=== PATIENT | male | born 1990 | race Caucasian/White ===

== ENCOUNTER → 2017-05-25 | Outpatient (CLI) | payer OTHER ==
[~2017-05-25] MED LIST: AMOX500 PO; BACL20 PO; BISA5EC; Bactrim 400-801 EACH PO; CHOL10002 PO; DIPH25; Dicyclomine HCl20 MG PO; GABA400 PO; HYDACE5 PO; LAVAP17G PO; MULVITMIND PO; Macrobid 100 M100 MG PO; NITR100 PO; Nitrofurantoin50 MG PO; OMEP20ER PO; POLY500 PO; PYRI100 PO; RXHYDACE PO; Roxicodone5 MG PO; Ultram50 MG PO; Vibramycin100 MG PO
== END | disposition home or self-care (01) ==
LOC: LAB 16:13
DX: N39.0 Urinary tract infection, site not specified (principal)
CPT/HCPCS: 87077; 87086; 87186

== ENCOUNTER → 2018-06-22 | Outpatient (CLI) | payer OTHER | END | disposition home or self-care (01) | LOC: LAB EV 15:39 → LAB SHORT 15:39 | DX: S91.302A Unspecified open wound, left foot, initial encounter (principal); Z53.9 Procedure and treatment not carried out, unspecified reason | CPT/HCPCS: 87070; 87075; 87205 ==

== ENCOUNTER → 2018-10-11 | Outpatient (CLI) | payer OTHER ==
[2018-10-11 15:42] LABS: BASOPHILS ABSOLUTE AUTO 0.06 K/mm3 (0.00-0.23); BASOPHILS PERCENT AUTO 1 % (0-2); EOSINOPHILS ABSOLUTE AUTO 0.26 K/mm3 (0.00-0.68); EOSINOPHILS PERCENT AUTO 3 % (0-6); Hematocrit 43.6 % (37.0-53.0); IMMATURE GRAN ABSOLUTE AUTO 0.03 K/mm3 (0.00-0.10); IMMATURE GRAN PERCENT AUTO 0 % (0-1); LYMPHOCYTES PERCENT AUTO 24 % (21-46); MONOCYTES ABSOLUTE AUTO 0.55 K/mm3 (0.16-1.47); MONOCYTES PERCENT AUTO 6 % (4-13); Mean Corpuscular HGB 30.7 pg (26.0-34.0); Mean Corpuscular HGB Conc 34.4 g/dL (31.5-36.5); Mean Corpuscular Volume 89 fL (80-100); Mean Platelet Volume 9.6 fL (9.1-12.4); NEUTROPHILS ABSOLUTE AUTO 6.48 K/mm3 (1.96-9.15); NEUTROPHILS PERCENT AUTO 67 % (41-73); Platelet Count 286 K/mm3 (150-400); RDW Coefficient Variation 12.4 % (11.7-14.2); RDW Standard Deviation 40.8 fL (35.1-46.3); Red Blood Cell Count 4.88 M/mm3 (4.30-5.90); White Blood Cell Count 9.68 K/mm3 (4.00-11.30)
[2018-10-11 15:55] LABS: Alanine Aminotransfer (ALT/SGP 23 U/L (12-78); Albumin/Globulin Ratio 1.1 (0.8-1.8); Alk Phos 69 U/L (40-126); Anion Gap 8 mmol/L (6-16); Aspartate Aminotrans (AST/SGOT 21 U/L (12-37); Bilirubin, Total 0.3 mg/dL (0.1-1.0); Blood Urea Nitrogen 8 mg/dL (8-24); Bun/Creatinine Ratio 10.1 (12.0-20.0); CO2, Blood 31 mmol/L (21-32); Calcium, Blood 9.1 mg/dL (8.5-10.1); Chloride, Blood 103 mmol/L (98-108); Creatinine, Blood 0.79 mg/dL (0.60-1.20); Globulin, Blood 3.5 g/dL (2.2-4.0); Glomerular Filtration Rate >60 (60-); Glucose, Blood 86 mg/dL (70-99); Potassium, Blood 3.9 mmol/L (3.5-5.5); Sodium, Blood 142 mmol/L (136-145); Total Protein, Blood 7.5 g/dL (6.4-8.2)
== END | disposition home or self-care (01) ==
LOC: LAB EV 15:38 → LAB SHORT 15:38
PROVIDERS: Physician Assistant Medical
DX: R10.84 Generalized abdominal pain (principal)
CPT/HCPCS: 80053; 83690; 85025

== ENCOUNTER 2019-06-05 00:16 | Day surgery (SDC) | payer OTHER | END 2019-06-05 22:46 | disposition home or self-care (01) | LOC: WOUND 00:16 | DX: I96 Gangrene, not elsewhere classified (principal); L89.894 Pressure ulcer of other site, stage 4; G82.21 Paraplegia, complete; N31.9 Neuromuscular dysfunction of bladder, unspecified; F17.210 Nicotine dependence, cigarettes, uncomplicated; I10 Essential (primary) hypertension; Z79.899 Other long term (current) drug therapy; Z88.5 Allergy status to narcotic agent ==

== ENCOUNTER 2019-06-12 00:12 | Day surgery (SDC) | payer OTHER | END 2019-06-12 22:53 | disposition home or self-care (01) | LOC: WOUND 00:12 | DX: L89.894 Pressure ulcer of other site, stage 4 (principal); G82.21 Paraplegia, complete; F17.210 Nicotine dependence, cigarettes, uncomplicated ==

== ENCOUNTER 2019-06-14 00:36 | Day surgery (SDC) | payer OTHER | END 2019-06-14 23:33 | disposition home or self-care (01) | LOC: WOUND 00:36 | DX: L89.894 Pressure ulcer of other site, stage 4 (principal); G82.21 Paraplegia, complete; F17.210 Nicotine dependence, cigarettes, uncomplicated; Z71.6 Tobacco abuse counseling ==

== ENCOUNTER 2019-06-20 00:17 | Day surgery (SDC) | payer OTHER | END 2019-06-20 23:09 | disposition home or self-care (01) | LOC: WOUND 00:17 | DX: L89.894 Pressure ulcer of other site, stage 4 (principal); G82.21 Paraplegia, complete; F17.210 Nicotine dependence, cigarettes, uncomplicated ==

== ENCOUNTER 2019-06-26 00:13 | Day surgery (SDC) | payer OTHER | END 2019-06-26 23:01 | disposition home or self-care (01) | LOC: WOUND 00:13 | DX: L89.894 Pressure ulcer of other site, stage 4 (principal); F17.210 Nicotine dependence, cigarettes, uncomplicated; G82.21 Paraplegia, complete ==

== ENCOUNTER → 2019-07-03 | Day surgery (SDC) | payer OTHER | LOC: WOUND 00:13 | DX: L89.894 Pressure ulcer of other site, stage 4 (principal); F17.210 Nicotine dependence, cigarettes, uncomplicated; G82.21 Paraplegia, complete ==

== ENCOUNTER 2019-07-10 02:10 | Day surgery (SDC) | payer OTHER | END 2019-07-10 23:41 | disposition home or self-care (01) | LOC: WOUND 02:10 | DX: L89.894 Pressure ulcer of other site, stage 4 (principal); G82.21 Paraplegia, complete; F17.210 Nicotine dependence, cigarettes, uncomplicated ==

== ENCOUNTER 2019-07-19 08:29 | Day surgery (SDC) | payer OTHER | END 2019-07-19 23:22 | disposition home or self-care (01) | LOC: WOUND 08:29 | DX: L89.894 Pressure ulcer of other site, stage 4 (principal); F17.210 Nicotine dependence, cigarettes, uncomplicated; G82.21 Paraplegia, complete ==

== ENCOUNTER 2019-07-24 00:14 | Day surgery (SDC) | payer OTHER | END 2019-07-24 22:51 | disposition home or self-care (01) | LOC: WOUND 00:14 | DX: L89.894 Pressure ulcer of other site, stage 4 (principal); F17.210 Nicotine dependence, cigarettes, uncomplicated; G82.21 Paraplegia, complete; Z79.899 Other long term (current) drug therapy ==

== ENCOUNTER 2019-07-31 00:23 | Day surgery (SDC) | payer OTHER | END 2019-07-31 22:50 | disposition home or self-care (01) | LOC: WOUND 00:23 | DX: L89.894 Pressure ulcer of other site, stage 4 (principal); I10 Essential (primary) hypertension; G89.21 Chronic pain due to trauma; F17.210 Nicotine dependence, cigarettes, uncomplicated ==

== ENCOUNTER 2019-08-10 00:39 | Day surgery (SDC) | payer OTHER | END 2019-08-10 22:40 | disposition home or self-care (01) | LOC: WOUND 00:39 | DX: L89.894 Pressure ulcer of other site, stage 4 (principal); F17.210 Nicotine dependence, cigarettes, uncomplicated; G82.21 Paraplegia, complete ==

== ENCOUNTER 2019-08-14 00:09 | Day surgery (SDC) | payer OTHER | END 2019-08-14 22:49 | disposition home or self-care (01) | LOC: WOUND 00:09 | DX: L89.894 Pressure ulcer of other site, stage 4 (principal); F17.210 Nicotine dependence, cigarettes, uncomplicated; G82.21 Paraplegia, complete ==

== ENCOUNTER 2019-09-04 00:23 | Day surgery (SDC) | payer OTHER | END 2019-09-04 22:51 | disposition home or self-care (01) | LOC: WOUND 00:23 | DX: L89.894 Pressure ulcer of other site, stage 4 (principal); F17.210 Nicotine dependence, cigarettes, uncomplicated; G82.21 Paraplegia, complete ==

== ENCOUNTER 2019-09-11 00:33 | Day surgery (SDC) | payer OTHER | END 2019-09-11 22:38 | disposition home or self-care (01) | LOC: WOUND 00:33 | DX: L89.894 Pressure ulcer of other site, stage 4 (principal); F17.210 Nicotine dependence, cigarettes, uncomplicated; G82.21 Paraplegia, complete ==

== ENCOUNTER 2019-09-18 00:09 | Day surgery (SDC) | payer OTHER | END 2019-09-18 22:36 | disposition home or self-care (01) | LOC: WOUND 00:09 | DX: L89.894 Pressure ulcer of other site, stage 4 (principal); F17.210 Nicotine dependence, cigarettes, uncomplicated; G82.21 Paraplegia, complete ==

== ENCOUNTER 2019-10-16 00:16 | Day surgery (SDC) | payer OTHER | END 2019-10-16 22:52 | disposition home or self-care (01) | LOC: WOUND 00:16 | DX: L89.894 Pressure ulcer of other site, stage 4 (principal); F17.210 Nicotine dependence, cigarettes, uncomplicated; G82.21 Paraplegia, complete ==

== ENCOUNTER 2019-10-23 00:07 | Day surgery (SDC) | payer OTHER | END 2019-10-23 23:02 | disposition home or self-care (01) | LOC: WOUND 00:07 | DX: L89.894 Pressure ulcer of other site, stage 4 (principal); F17.210 Nicotine dependence, cigarettes, uncomplicated; G82.21 Paraplegia, complete | CPT/HCPCS: G0463 ==

== ENCOUNTER 2019-10-30 00:21 | Day surgery (SDC) | payer OTHER | END 2019-10-30 22:37 | disposition home or self-care (01) | LOC: WOUND 00:21 | DX: L89.894 Pressure ulcer of other site, stage 4 (principal); F17.210 Nicotine dependence, cigarettes, uncomplicated; G82.21 Paraplegia, complete ==

== ENCOUNTER 2019-11-15 06:31 | Day surgery (SDC) | payer OTHER ==
[~2019-11-15] VITALS: Ht 175.3 cm; Wt 50.0 kg
--- NOTE | 2019-11-15 07:59 | NUR ---
11/15/19 0759 Jennifer Silver IV INFILTRATED. COULD NOT ADVANCE THE HUB ON THE 2ND AND 3RD TRY.
--- NOTE | 2019-11-15 09:35 | NUR ---
11/15/19 0935 GEOFF STEVENS PATIENT TO STEPDOWN VIA GURNEY. TOLERATING PO INTAKE OF SODA AND COOKIES. VSS, THOUGH BP ELEVATED 169/104. CONTINUE TO MONITOR PER DR. CERVANTES. BROTHER AT BEDSIDE
== END 2019-11-15 10:35 | disposition home or self-care (01) ==
LOC: ORSCSDS 06:31
PROVIDERS: Podiatrist Foot & Ankle Surgery
PROC: 0QBP0ZZ Excision of Left Metatarsal, Open Approach (ICD-10-PCS; principal; 2019-11-15 08:30)
PROC: 0JBR0ZZ Excision of Left Foot Subcutaneous Tissue and Fascia, Open Approach (ICD-10-PCS; principal; 2019-11-15 08:30)
DX: L89.894 Pressure ulcer of other site, stage 4 (principal); M89.9 Disorder of bone, unspecified; F17.210 Nicotine dependence, cigarettes, uncomplicated
CPT/HCPCS: 87070; 87075; 87102; 87205; 88305; 88312; J0690; J2250; J2704; J3010; J7120

== ENCOUNTER 2019-12-21 00:24 | Day surgery (SDC) | payer OTHER | END 2019-12-21 22:50 | disposition home or self-care (01) | LOC: WOUND 00:24 | DX: L89.894 Pressure ulcer of other site, stage 4 (principal); F17.210 Nicotine dependence, cigarettes, uncomplicated; G82.21 Paraplegia, complete ==

== ENCOUNTER 2019-12-31 00:28 | Day surgery (SDC) | payer OTHER | END 2019-12-31 23:00 | disposition home or self-care (01) | LOC: WOUND 00:28 | DX: L89.894 Pressure ulcer of other site, stage 4 (principal); F17.210 Nicotine dependence, cigarettes, uncomplicated; G82.21 Paraplegia, complete ==

== ENCOUNTER 2020-01-10 00:22 | Day surgery (SDC) | payer OTHER | END 2020-01-10 22:45 | disposition home or self-care (01) | LOC: WOUND 00:22 | DX: L89.894 Pressure ulcer of other site, stage 4 (principal); F17.210 Nicotine dependence, cigarettes, uncomplicated; G82.21 Paraplegia, complete ==

== ENCOUNTER 2020-02-26 00:58 | Day surgery (SDC) | payer OTHER | END 2020-02-26 23:20 | disposition home or self-care (01) | LOC: WOUND 00:58 | DX: L89.894 Pressure ulcer of other site, stage 4 (principal); F17.210 Nicotine dependence, cigarettes, uncomplicated; G82.21 Paraplegia, complete | CPT/HCPCS: G0463 ==

== ENCOUNTER 2020-03-18 02:04 | Day surgery (SDC) | payer OTHER | END 2020-03-18 23:10 | disposition home or self-care (01) | LOC: WOUND 02:04 | DX: L89.893 Pressure ulcer of other site, stage 3 (principal); G82.21 Paraplegia, complete; E11.9 Type 2 diabetes mellitus without complications; G62.9 Polyneuropathy, unspecified; I10 Essential (primary) hypertension; M81.0 Age-related osteoporosis without current pathological fracture; F17.210 Nicotine dependence, cigarettes, uncomplicated; N31.9 Neuromuscular dysfunction of bladder, unspecified; Z88.5 Allergy status to narcotic agent; Z88.6 Allergy status to analgesic agent | CPT/HCPCS: G0463 ==

== ENCOUNTER 2020-04-08 01:06 | Day surgery (SDC) | payer OTHER | END 2020-04-08 23:34 | disposition home or self-care (01) | LOC: WOUND 01:06 | DX: I96 Gangrene, not elsewhere classified (principal); L89.894 Pressure ulcer of other site, stage 4; G82.20 Paraplegia, unspecified; F17.210 Nicotine dependence, cigarettes, uncomplicated; N31.9 Neuromuscular dysfunction of bladder, unspecified; I10 Essential (primary) hypertension; Z88.5 Allergy status to narcotic agent; Z88.6 Allergy status to analgesic agent; Z99.3 Dependence on wheelchair | CPT/HCPCS: G0463 ==

== ENCOUNTER 2020-04-30 00:23 | Day surgery (SDC) | payer OTHER | END 2020-04-30 22:59 | disposition home or self-care (01) | LOC: WOUND 00:23 | DX: L89.893 Pressure ulcer of other site, stage 3 (principal); I10 Essential (primary) hypertension; G82.21 Paraplegia, complete; F17.210 Nicotine dependence, cigarettes, uncomplicated; N31.9 Neuromuscular dysfunction of bladder, unspecified; Z88.5 Allergy status to narcotic agent; Z88.8 Allergy status to other drugs, medicaments and biological substances | CPT/HCPCS: G0463 ==

== ENCOUNTER 2021-10-19 01:11 | Day surgery (SDC) | payer OTHER | END 2021-10-19 23:24 | disposition home or self-care (01) | LOC: WOUND 01:11 | DX: L89.893 Pressure ulcer of other site, stage 3 (principal); F17.210 Nicotine dependence, cigarettes, uncomplicated; G82.21 Paraplegia, complete; Z88.6 Allergy status to analgesic agent | CPT/HCPCS: 99406; A9270; G0463 ==

== ENCOUNTER 2021-10-27 01:56 | Day surgery (SDC) | payer OTHER | END 2021-10-27 22:56 | disposition home or self-care (01) | LOC: WOUND 01:56 | DX: L89.893 Pressure ulcer of other site, stage 3 (principal); L97.522 Non-pressure chronic ulcer of other part of left foot with fat layer exposed; F17.210 Nicotine dependence, cigarettes, uncomplicated; G82.21 Paraplegia, complete | CPT/HCPCS: 99406; A9270; G0463 ==

== ENCOUNTER 2021-11-10 05:19 | Day surgery (SDC) | payer OTHER | END 2021-11-10 22:57 | disposition home or self-care (01) | LOC: WOUND 05:19 | DX: L89.893 Pressure ulcer of other site, stage 3 (principal); L97.522 Non-pressure chronic ulcer of other part of left foot with fat layer exposed; G82.21 Paraplegia, complete; F17.210 Nicotine dependence, cigarettes, uncomplicated | CPT/HCPCS: 99406; A9270 ==

== ENCOUNTER 2021-11-24 05:02 | Day surgery (SDC) | payer OTHER | END 2021-11-24 23:56 | disposition home or self-care (01) | LOC: WOUND 05:02 | DX: L89.893 Pressure ulcer of other site, stage 3 (principal); L97.522 Non-pressure chronic ulcer of other part of left foot with fat layer exposed; G82.21 Paraplegia, complete; F17.210 Nicotine dependence, cigarettes, uncomplicated | CPT/HCPCS: 99406; A9270 ==

== ENCOUNTER 2021-12-09 00:59 | Day surgery (SDC) | payer OTHER | END 2021-12-09 23:36 | disposition home or self-care (01) | LOC: WOUND 00:59 | DX: L89.893 Pressure ulcer of other site, stage 3 (principal); F17.210 Nicotine dependence, cigarettes, uncomplicated; G82.21 Paraplegia, complete; L97.522 Non-pressure chronic ulcer of other part of left foot with fat layer exposed | CPT/HCPCS: 99406; A9270; G0463 ==

== ENCOUNTER 2021-12-23 08:00 | Day surgery (SDC) | payer OTHER | END 2021-12-23 23:59 | disposition home or self-care (01) | LOC: WOUND 08:00 | DX: L89.893 Pressure ulcer of other site, stage 3 (principal); F17.210 Nicotine dependence, cigarettes, uncomplicated; G82.21 Paraplegia, complete; L97.522 Non-pressure chronic ulcer of other part of left foot with fat layer exposed | CPT/HCPCS: 99406; A9270; G0463 ==

== ENCOUNTER 2022-01-15 01:16 | Day surgery (SDC) | payer OTHER | END 2022-01-15 22:58 | disposition home or self-care (01) | LOC: WOUND 01:16 | DX: L89.893 Pressure ulcer of other site, stage 3 (principal); L97.522 Non-pressure chronic ulcer of other part of left foot with fat layer exposed; F17.210 Nicotine dependence, cigarettes, uncomplicated; G82.21 Paraplegia, complete | CPT/HCPCS: 99406; A9270; G0463 ==

== ENCOUNTER 2022-03-09 01:38 | Day surgery (SDC) | payer OTHER | END 2022-03-09 23:22 | disposition home or self-care (01) | LOC: WOUND 01:38 | DX: Z09 Encounter for follow-up examination after completed treatment for conditions other than malignant neoplasm (principal); G82.20 Paraplegia, unspecified; F17.210 Nicotine dependence, cigarettes, uncomplicated | CPT/HCPCS: 99406; G0463 ==